=== PATIENT | female | born 1940 | race Caucasian/White ===

== ENCOUNTER 2016-09-12 05:17 | Inpatient (IN) | payer OTHER ==
[2016-09-04 13:17] LABS: HEMATOCRIT 39.1 % (37.0-47.0); HEMOGLOBIN 12.8 gm/dL (12.0-15.0); MCH 28.8 pg (26.0-34.0); MCHC 32.8 g/dL (28.0-37.0); MCV 87.7 fL (80.0-100.0); RBC 4.45 mil/uL (4.20-5.00); RDW 14.5 % (10.5-14.5); URINE BILIRUBIN NEGATIVE (Negative); URINE BLOOD 1+ (Negative); URINE COLOR YELLOW; URINE GLUCOSE-RANDOM* NEGATIVE (Negative); URINE KETONES NEGATIVE (Negative); URINE LEUKOCYTES-REFLEX NEGATIVE (Negative); URINE PROTEIN (DIPSTICK) NEGATIVE (Negative); WBC 6.1 thou/uL (4.0-11.0)
[2016-09-04 13:33] LABS: ALBUMIN 4.5 g/dL (3.4-5.0); CALCIUM 9.9 mg/dL (8.5-10.1); POTASSIUM 3.6 mmol/L (3.5-5.1)
[2016-09-04 13:35] LABS: INR 1.1; PROTIME 11.1 Seconds (9.3-11.4)
[2016-09-04 13:41] LABS: CASTS None Seen /LPF (None Seen); CRYSTALS None Seen /LPF (None Seen); SQUAMOUS 0-3 Few /LPF (0-3); URINE RBC 0-2 Rare /HPF (0-2); URINE WBC-REFLEX None Seen /HPF (0-5)
[2016-09-05 05:12] LABS: GLYCOHEMOGLOBIN (HGB A1C) 5.5 % (4.8-5.6)
[2016-09-12] VITALS (9 sets, daily range): BP systolic 94–137; BP diastolic 57–74
[~2016-09-12] VITALS: Ht 165.1 cm; Wt 76.3 kg
--- NOTE | ~2016-09-12 | HC ---
[facility] [place] [address] CONSULTATION Name: WHITNEY SALMERON Room #: 543-P [facility] IN M.R.#: [id number] Admission: 09/12/16 Attend Phys: Salazar Cruz MD Discharge: Date of : 42 Report #: [id number] THIS REPORT FOR: //name// CC: Salazar Cuevas DATE OF SERVICE: 09/12/2016 REASON FOR CONSULTATION: Medical management. HISTORY OF PRESENT ILLNESS: The patient is a pleasant 76-year-old female seen postop day zero from left knee replacement. In the postop setting, she is somewhat drowsy, but easily arousable and answers questions appropriately. She denies significant pain, dyspnea, chest pain, fevers, chills, or other problems. She has no significant complaints at this time. PAST MEDICAL HISTORY: Includes, 1. Hypertension. 2. Diabetes. 3. Hyperlipidemia. 4. Arthritis. 5. Thyroid disease. PAST SURGICAL HISTORY: Includes bunion surgery bilaterally, cataract surgery bilaterally, hernia surgery, thyroid surgery. FAMILY HISTORY: Includes heart disease. SOCIAL HISTORY: Lives alone. No significant other social history reported. MEDICATIONS: Refer to reconciliation note. ALLERGIES: No known drug allergies. REVIEW OF SYSTEMS: Twelve point review of systems performed and negative except as mentioned in history of present illness. PHYSICAL EXAMINATION: VITAL SIGNS: Afebrile, pulse 69, respiratory 16, O2 sat 100 on room air, blood pressure 137/74. GENERAL: Awake, alert, in acute distress. HEENT: Unremarkable. NECK: No JVD or thyromegaly. CARDIOVASCULAR: S1, S2 present, regular. RESPIRATORY: Air entry present bilaterally. ABDOMEN: Soft, nontender. [facility] [address] [place] [address] CONSULTATION Name: WHITNEY SALMERON Room #: 543-P ADM IN M.R.#: [id number] Admission: 09/12/16 Attend Phys: Salazar Cruz MD Discharge: Date of : 42 Report #: [id number] EXTREMITIES: Left knee dressed with drain in place with sanguinous drainage. NEUROLOGIC: Awake, alert and appropriate without obvious focal signs. SKIN: Unremarkable. No rash or lesions. LABS AND INVESTIGATIONS: CBC, chemistry, coag panel, urinalysis unremarkable. ASSESSMENT AND PLAN: This is a 76-year-old female seen postop day #0, post left knee replacement. 1. Left knee replacement. Defer further treatment per orthopedic surgery. 2. Hypertension, fair control. Resume home meds. 3. Diabetes. Resume home meds. 4. Hyperlipidemia. Resume home meds. 5. Monitor for any postop complications. At the present time, the patient appears stable. We appreciate the opportunity to be involved in her care and we will continue following while inpatient. <ELECTRONICALLY SIGNED> By: Butch Greco MD 09/13/16 1006 1554 13 Butch Greco MD /ramsey
--- NOTE | ~2016-09-12 | EKG ---
[address] [address] ELECTROCARDIOGRAM REPORT Name: WHITNEY SALMERON Room #: PRE IN [facility]#: [id number] Admission: Attend Phys: Salazar Cruz MD Discharge: Date of : 42 Report #: [id number] THIS REPORT FOR: //name// [facility] Test Date: 2016-09-04 Test Time: 13:41:21 Pat Name: WHITNEY SALMERON Department: Room: Gender: F Spinning Frame Cleaner: STELLA MENJIVAR : 1940 Requested By: Salazar Cruz Order Number: [id number] MD: Angel Park Measurements Intervals [place] Rate: 67 P: 45 NE: 192 QRS: -5 QRSD: 108 T: -3 QT: 414 QTc: 437 Interpretive Statements Sinus rhythm Probable left ventricular hypertrophy Borderline T abnormalities, diffuse leads Compared to ECG 06/24/1990 23:01:00 T-wave abnormality now present Electronically Signed On 09-04-2016 18:05:07 CDT by Angel Park [email or web address] <ELECTRONICALLY SIGNED> By: Angel Park MD 09/04/16 1805 134 134 Angel Park MD /ABEL
--- NOTE | ~2016-09-12 | O ---
[facility] [place] [address] OPERATIVE REPORT Name: WHITNEY SALMERON Room #: 543-P ADM IN M.R.#: [id number] Admission: 09/12/16 Attend Phys: Salazar Cruz MD Discharge: Date of : 42 Report #: [id number] THIS REPORT FOR: //name// CC: Saalzar Cuevas MD DATE OF SERVICE: 09/12/2016 PREOPERATIVE DIAGNOSIS: Left knee degenerative joint disease, severe. POSTOPERATIVE DIAGNOSIS: Left knee degenerative joint disease, severe. PROCEDURE: Left total knee arthroplasty. SURGEON: Salazar Cruz MD. DIRECTOR OF RECRUITMENT AND ADMISSIONS: ARTIE Garcia. ANESTHESIA: General. INDICATIONS: See hospital H and P. IMPLANTS UTILIZED: We used a DePuy PFC knee system. We used a cruciate retaining femoral component press fit size 4 narrow, size 3 tibial tray with an 8 mm insert, and a 41 mm oval dome patella. DESCRIPTION OF PROCEDURE: After adequate general anesthesia had been obtained, the patient's left lower extremity was prepped and draped in the usual meticulous sterile fashion. Limb was exsanguinated with gravity. Tourniquet was inflated to 350 torr. An anterior midline incision was made. SubQ divided sharply. Hemostasis was obtained with electrocautery. Medial parapatellar incision was made, infrapatellar fat pad was excised. Medial release was performed. The drill was used to drill the distal femur. This hole was enlarged, irrigated, suctioned, and the intramedullary guide placed the full length of the femur. The distal femoral cutting guide pinned to the appropriate height, distal femoral cut was made. The measuring device determined the size 4 as the appropriate size for this patient. The distal femur was marked, cutting guide impacted in to place, and the anterior, posterior, and chamfer cuts were made. Rongeur was used to remove additional osteophytes. At this time, the ACL was transected, and the tibia translated anteriorly, menisci were excised. A drill was used to drill the central portion of the tibia. This hole was enlarged, irrigated, suctioned, and the intramedullary guide placed the full length of the tibia. Proximal tibial cutting guide placed at appropriate height. Proximal tibial cut was made, 3 tray gave us the best [facility] [address] [place] [address] OPERATIVE REPORT Name: WHITNEY SALMERON Room #: 543-P [facility] IN ..#: [id number] Admission: 09/12/16 Attend Phys: Salazar Cruz MD Discharge: Date of : 42 Report #: [id number] coverage on the tibia. We spent a great deal of time in removing osteophytes from the posterior femur, as well as removing a large loose body from the popliteal space. This was carefully done with blunt dissection. We put the trial components in position. With the 8 spacer, she had the best flexion and extension gap. Patella was then measured, cutting guide clamped into place, patellar cut was made. A 41 template gave us the best coverage. We drilled the peg holes and put the trial component in position, and the patella tracked normally. At this time, the tibial tray rotation marked, distal femur was drilled. Trial components were removed. The knee was irrigated with both pulse lavage and antibiotic irrigation. We then placed the bone plug to the proximal tibia and distal femur. The cement was vacuum mixed, and when it reached the appropriate consistency, the knee was thoroughly dried. The tibial tray was cemented in to place. Excess cement was removed. The polyethylene was impacted in to place. The femur impacted in to place. The knee was taken out to 30 degrees of flexion. Uniform compression placed across the components. Patellar button was then cemented into place and again excess cement was removed. The knee was then irrigated, and irrigation was allowed to rest in the wound, until the cement fully cured. When it had done so, the knee was dried thoroughly, and inspected. Drains were placed superolaterally, both deep and superficial. The retinacular layer closed with combination of interrupted [id number] #1 Vicryl, as well as running #1 Tevdek. SubQ was closed with 2-0 Monocryl. Skin closed with solo. Sterile compressive dressing was applied. Tourniquet was then deflated. By: [id number] Salazar Cruz MD /nt
[~2016-09-12 05:17] MED LIST: ASPIR 8181 MG PO; COZAAR 25 MG TA25 M1 PO; HYDROCHLOROTHIA25 M1 PO; LEVOTHYROXIN0.088 MG PO; METFORMIN HCL500 MG PO; POTASSIUM20 PO; SIMVASTATIN40 MG PO; TOPROL XL25 MG PO; VITAMIN D250000 UNIT PO
[2016-09-13 04:00] VITALS: BP 102/64
[2016-09-13 05:21] LABS: HEMATOCRIT 30.1 % (37.0-47.0); HEMOGLOBIN 10.3 gm/dL (12.0-15.0); MCH 29.5 pg (26.0-34.0); MCHC 34.2 g/dL (28.0-37.0); MCV 86.1 fL (80.0-100.0); RBC 3.49 mil/uL (4.20-5.00); RDW 14.3 % (10.5-14.5); WBC 8.7 thou/uL (4.0-11.0)
[2016-09-13 05:34] LABS: CALCIUM 8.7 mg/dL (8.5-10.1); CREATININE 1.3 mg/dL (0.6-1.0)
[2016-09-13 07:29] VITALS: BP 108/63
[2016-09-13 10:05] VITALS: BP 108/63
[2016-09-13 16:50] VITALS: BP 140/83
[2016-09-13 20:00] VITALS: BP 96/55
[2016-09-13 20:16] VITALS: BP 103/53
[2016-09-14 03:51] VITALS: BP 119/68
[2016-09-14 06:08] LABS: HEMATOCRIT 29.8 % (37.0-47.0); HEMOGLOBIN 10.3 gm/dL (12.0-15.0); MCH 29.6 pg (26.0-34.0); MCHC 34.6 g/dL (28.0-37.0); MCV 85.4 fL (80.0-100.0); RBC 3.49 mil/uL (4.20-5.00); WBC 10.4 thou/uL (4.0-11.0)
[2016-09-14 06:20] LABS: CALCIUM 8.8 mg/dL (8.5-10.1); CREATININE 1.1 mg/dL (0.6-1.0)
[2016-09-14 07:15] VITALS: BP 116/56
[2016-09-14 15:43] VITALS: BP 134/69
[2016-09-14 19:33] VITALS: BP 137/66
[2016-09-15 03:35] VITALS: BP 133/71
[2016-09-15 03:40] LABS: MCH 29.6 pg (26.0-34.0); MCHC 34.4 g/dL (28.0-37.0); MCV 86.1 fL (80.0-100.0); RBC 3.37 mil/uL (4.20-5.00); WBC 10.7 thou/uL (4.0-11.0)
[2016-09-15 03:50] LABS: CALCIUM 8.9 mg/dL (8.5-10.1); POTASSIUM 4.5 mmol/L (3.5-5.1)
[2016-09-15] MEDS ORDERED: HYDROCODONE-APA1 TA1 PO (06:48)
[2016-09-15] MEDS ORDERED: XARELTO10 MG PO (06:48)
[2016-09-15 08:52] VITALS: BP 129/71
[2016-09-15 12:11] VITALS: BP 108/63
[2016-09-15 17:03] VITALS: BP 132/74
[2016-09-15 20:00] VITALS: BP 131/50
[2016-09-16 04:00] VITALS: BP 138/74
[2016-09-16 08:12] VITALS: BP 128/72
[2016-09-16 08:30] VITALS: BP 128/72
== END 2016-09-16 12:19 | disposition home or self-care (01) | DRG 470 ==
LOC: TBA 05:17 → 5S 05:17 → PRE 07:07 → 5S 10:28 → PRE 11:12 → 5S 09-16 12:19
PROVIDERS: Hospitalist; Orthopaedic Surgery
PROC: 0SRD0J9 Replacement of Left Knee Joint with Synthetic Substitute, Cemented, Open Approach (ICD-10-PCS; principal; 2016-09-12)
DX: M17.12 Unilateral primary osteoarthritis, left knee (principal); N17.9 Acute kidney failure, unspecified; I10 Essential (primary) hypertension; E11.9 Type 2 diabetes mellitus without complications; E78.5 Hyperlipidemia, unspecified; Z60.2 Problems related to living alone; D64.9 Anemia, unspecified; Z79.899 Other long term (current) drug therapy; Z98.42 Cataract extraction status, left eye; Z98.41 Cataract extraction status, right eye; Z82.49 Family history of ischemic heart disease and other diseases of the circulatory system
CPT/HCPCS: 10785; 50010; 50101; 50415; 50612; 50886; 50954; 51130; 51225; 51320; 51412; 51771; 52001; 52282; 53000; 53078; 53364; 56525; 56527; 62110; 62900; 70005

== ENCOUNTER → 2021-02-24 | Outpatient (CLI) | payer OTHER ==
[~2021-02-24] MED LIST changes: +ASPIRIN EC81 M1 PO; +CALCIUM500 MG PO; +CARBIDOPA-LEVO1 EAC9 PO; +HYDROCODONE-APA1 TA1 PO; +KLOR-CON M2020 MEQ PO; +NORCO7.5 PO; +TOPROL XL50 MG PO; +VITAMIN D PO; +VITAMIN D31250 MC1 PO; +XARELTO10 MG PO
[2021-02-24 11:53] LABS: HEMATOCRIT 38.2 % (37.0-47.0); HEMOGLOBIN 12.3 gm/dL (12.0-15.0); MCH 28.8 pg (26.0-34.0); MCHC 32.3 g/dL (28.0-37.0); MCV 89.2 fL (80.0-100.0); RBC 4.28 mil/uL (4.20-5.00); RDW 14.7 % (10.5-14.5); WBC 8.7 thou/uL (4.0-11.0)
[2021-02-24 11:57] LABS: URINE BILIRUBIN NEGATIVE (Negative); URINE BLOOD 1+ (Negative); URINE CLARITY CLEAR; URINE COLOR YELLOW; URINE GLUCOSE-RANDOM* NEGATIVE (Negative); URINE KETONES NEGATIVE (Negative); URINE LEUKOCYTES-REFLEX TRACE (Negative); URINE NITRITE-REFLEX NEGATIVE (Negative); URINE PROTEIN (DIPSTICK) NEGATIVE (Negative); URINE UROBILINOGEN 0.2 E.U./dl (0.2-1.0)
[2021-02-24 11:58] LABS: INR 1.04; PROTIME 11.3 Seconds (10.5-12.1)
[2021-02-24 12:01] LABS: ALBUMIN 4.3 g/dL (3.4-5.0); CALCIUM 9.6 mg/dL (8.5-10.1); CREATININE 1.1 mg/dL (0.6-1.0); POTASSIUM 3.8 mmol/L (3.5-5.1)
[2021-02-24 12:09] LABS: BACTERIA-REFLEX 1-9 Few /HPF (None Seen); CASTS None Seen /LPF (None Seen); CRYSTALS None Seen /LPF (None Seen); SQUAMOUS 4-10 Moderate /LPF (0-3); URINE RBC 1-2 Rare /HPF (NONE SEEN); URINE WBC-REFLEX 0-5 Rare /HPF (0-5)
== END ==
LOC: PAC 10:18
PROVIDERS: ATTEND Orthopaedic Surgery
DX: Z01.812 Encounter for preprocedural laboratory examination (principal); M17.12 Unilateral primary osteoarthritis, left knee; I10 Essential (primary) hypertension

== ENCOUNTER 2021-03-03 07:15 | Inpatient (IN) | payer OTHER ==
[~2021-03-03] VITALS: Ht 165.1 cm; Wt 76.2 kg
[2021-03-03 08:49] VITALS: BP 143/73
--- NOTE | 2021-03-03 12:03 | O ---
[facility] [place] [address] OPERATIVE REPORT Name: WHITNEY SALMERON Room #: 150-6 [facility]..#: [id number] Admission: 03/03/21 Attend Phys: Kalen Allen MD Discharge: Date of : 42 Report #: [id number] THIS REPORT FOR: cc: Ronna Cuevas MD,Ronna Allen,Kalen Seth MD ~ DATE OF SERVICE: 03/03/2021 PREOPERATIVE DIAGNOSIS: Degenerative arthritis, right knee. POSTOPERATIVE DIAGNOSIS: Degenerative arthritis, right knee. PROCEDURE: Right total knee arthroplasty. SURGEON: Kalen Allen MD INDICATIONS: This frail, but still healthy and generally active 80-year-old female has progressive degenerative arthritis in multiple areas. She underwent previous left total knee replacement with good result. She is now having progressive right knee pain with mild varus position. She has elected to go ahead with right total knee arthroplasty. DESCRIPTION OF PROCEDURE: The patient was taken to the operating room where she was placed under general anesthesia. A femoral nerve block was also applied. The right knee and leg were meticulously prepped and draped. A thigh tourniquet was applied and inflated to 300 mmHg. An anterior longitudinal skin incision was made and carried through the medial retinaculum. The patella was reflected laterally. Moderately severe degenerative change in all three compartments was noted. The Alicea and Nephew knee system was utilized. Intramedullary guides were used on both the femur and the tibia. The femur was cut in 5 degrees of valgus and the tibia cut perpendicular to the long axis of the bone. Sufficient bone was resected to correct the mild flexion contracture and mild varus position. The femur was best suited for a size 4 femoral component. The tibia was best suited for a size 3 tibial component. A trial reduction demonstrated that a 9 mm polyethylene insert worked nicely. The patellar surface was resected and a 35 mm patellar button fit most appropriately. Appropriate anchor holes were created. The intramedullary canal was blocked with a bone block on both the femoral and tibial sides. The surfaces were thoroughly irrigated and dried. Methyl methacrylate cement was mixed and injected into the porous surface of the proximal tibia. The permanent components were brought up on the field. The Alicea and Nephew size 3 right, tibial baseplate was selected. This was impacted into position and seated nicely and appeared to be secure. The 9 mm Legion cruciate retaining polyethylene insert was snapped into place. It seated nicely and appeared to be secure. The right size 4 cruciate retaining Legion porous femoral component was impacted on the distal femur with a small amount of cement at the anchor holes. This also seated nicely and appeared to [address] [address] OPERATIVE REPORT Name: WHITNEY SALMERON Room #: 150-6 [facility] M.R.#: [id number] Admission: 03/03/21 Attend Phys: Kalen Allen MD Discharge: Date of : 42 Report #: [id number] be secure. A 35 mm Michelle II patellar resurfacing component was selected and impacted into the patella with appropriate anchor holes and cement. This was secured with a patellar clamp until the cement had hardened. Alignment, range of motion and stability were assessed and felt to be satisfactory. The patella tracks nicely and appears to be stable. The knee demonstrated full knee extension and flexion beyond 130. At this point, the knee was copiously irrigated. A single Hemovac was left in the wound exiting through a separate stab incision. The tourniquet was deflated after a total tourniquet time of 43 minutes. The fascia was closed with multiple #1 Vicryl sutures. The subcutaneous tissues were closed with 0 Monocryl. The skin was closed with skin solo. A sterile dressing was applied. The patient was awakened and returned to recovery room in good condition. <ELECTRONICALLY SIGNED> By: Kalen Allen MD 03/03/21 1203 [id number] [id number] Kalen Allen MD /nt
[2021-03-03 17:26] VITALS: BP 154/69
[2021-03-03 21:04] VITALS: BP 118/66
--- NOTE | 2021-03-03 22:41 | NUR ---
PT ALERT AND ORIENTED WITH SOME SLIGHT FORGETFULNESS. PT RIGHT KNEE WITH RICHARD DRSG WELL POLAR LAYO, TEDS AND SCDS.GOOD CSM TO R FOOT. ABDUCTOR PILLOW WHILE IN BED. ON /, ENC TO USE I/S W/A. PT REQUESTING TO USE BEDPAN-VOIDING ADEQUATELY. URINARY FREQUENCY REPORTED PER NORM. DENIES ANY BURNING. DENIES ANY NAUSEA OR VOMITING.IVF INFUSING-NO FURTHER CONCERNS AT THIS TIME.CALL LIGHT WITHIN REACH.
[2021-03-04 06:13] LABS: HEMATOCRIT 28.6 % (37.0-47.0); HEMOGLOBIN 9.5 gm/dL (12.0-15.0); MCH 29.4 pg (26.0-34.0); MCV 88.9 fL (80.0-100.0); RBC 3.22 mil/uL (4.20-5.00); RDW 13.8 % (10.5-14.5)
[2021-03-04 06:51] LABS: CALCIUM 8.9 mg/dL (8.5-10.1); CREATININE 1.2 mg/dL (0.6-1.0); POTASSIUM 3.9 mmol/L (3.5-5.1)
--- NOTE | 2021-03-04 08:00 | NUR ---
chart review. 80 year old female, Right total knee replacement. A & o x 3, with some forgetfulness, pleasant and able to make her needs know. She lives alone in condo, manage own medication. Has broken fww and will need another one. If dc over weekend send her home with one from closet related to provider plus has rx already. 3 steps into condo and few steps inside. Danyell is my daughter we want to use vna hh and i want to take home very thing i can, bedpan, bedside commode, shower chair, and walker. Cm re-education that insurance not cover bsc or shower chair.
[2021-03-04 08:15] VITALS: BP 110/50
--- NOTE | 2021-03-04 11:46 | NUR ---
Assumed care of pt at 0700. Pt a&ox4, forgetful at times. Pain controlled. Dressing c/d/i. TAY hose and SCDs in place. Will d/c hemovac drain today. Pt worked with physical therapy this am. Will likely need rehab. Call light within reach. Fall precuations in place. Will continue to monitor.
[2021-03-04 16:35] VITALS: BP 134/48
[2021-03-04 21:15] VITALS: BP 135/62
[2021-03-05 06:06] LABS: HEMATOCRIT 27.7 % (37.0-47.0); MCH 28.7 pg (26.0-34.0); MCHC 32.5 g/dL (28.0-37.0); MCV 88.4 fL (80.0-100.0); RBC 3.14 mil/uL (4.20-5.00); WBC 11.7 thou/uL (4.0-11.0)
[2021-03-05 08:43] VITALS: BP 125/51
--- NOTE | 2021-03-05 10:21 | NUR ---
Assumed care of pt at 0700. Pt a&ox4. Dressing c/d/i. Pain controlled with prn pain medications. Up to the chair this am. Will work with physical therapy this morning. Will possibly need SNF. radiation control worker was called and stated she will talk to patient and family this am. Family at bedside. Call light within reach. Fall precautions in place. Will continue to monitor.
--- NOTE | 2021-03-05 11:08 | NUR ---
WAS NOTIFIED BY PALAK DOUGLAS THAT PT'S FAMILY PT IS NEEDING A SKILLED STAY AT [facility]. SPOKE WITH PT'S SON AND THE FAMILY IS [facility]ED [facility] AND I, SUGGESTED THAT THEY LOOK INTO [facility] AND THAT THE ROBOTIC MACHINE OPERATOR FOR THE UNIT WILL SPEAK WITH THEM ON SUNDAY AND LET THEM KNOW ALL THEIR OPTIONS FOR FACILITIES.
[2021-03-05 11:42] VITALS: BP 125/51
[2021-03-05 16:57] VITALS: BP 140/58
[2021-03-05 20:36] VITALS: BP 137/84
--- NOTE | 2021-03-06 05:38 | NUR ---
PT LYING IN RECLINER. VOIDING PER BSC. LORTAB PROVIDING PAIN RELIEF. RESTING COMFORTABLY. NO NEEDS VOICED. CALL LIGHT WITHIN REACH. FREQUENT OBSERVATION.
[2021-03-06 06:18] LABS: HEMATOCRIT 26.6 % (37.0-47.0); HEMOGLOBIN 8.7 gm/dL (12.0-15.0); MCH 29.2 pg (26.0-34.0); MCHC 32.9 g/dL (28.0-37.0); MCV 88.6 fL (80.0-100.0); RDW 14.1 % (10.5-14.5); WBC 9.6 thou/uL (4.0-11.0)
[2021-03-06 08:05] VITALS: BP 125/50
--- NOTE | 2021-03-06 11:42 | NUR ---
ASSUMED CARE OF PT AT 0700 THIS MORNING. PT HAS RT TTL KNEE REPLACEMENT. PT IS A/OX4 WITH SOME FORGETFULNESS. PT IS WAITING FOR AUTHORIZATION TO GO TO REHAB IN SNF. ASSESSMENTS NOTED IN CHART AND OTHERWISE UNREMARKABLE. FALL PRECAUTIONS ARE IN PLACE. CALL LIGHT AND OTHER NEEDS ARE IN REACH. MEDS AND TX GIVEN NEEDED AND SCHEDULED. WILL MONITOR AND NOTE ANY CHANGES.
[2021-03-06 15:05] VITALS: BP 123/56
[2021-03-06 20:17] VITALS: BP 110/47
--- NOTE | 2021-03-07 05:34 | NUR ---
PT SLEEPING IN RECLINER. TRANSFERRING TO BEDSIDE COMMED WITH ASSIST X2. LORTAB PROVIDING PAIN RELIEF. RESTING COMFORTABLY. NO NEEDS VOICED. CALL LIGHT WITHIN REACH. FREQUENT OBSERVATION.
[2021-03-07 07:41] VITALS: BP 139/59
--- NOTE | 2021-03-07 09:30 | NUR ---
RE-ASSUMED CARE OF PT AT 0700 THIS MORNING. PT IS A/OX4 AND HAS NO COMPLAINTS AT THIS TIME. PT IS TO BE WORKING WITH PHYS THPY AND OT THIS MORNING. FIELD CANE SCALER IS WORKING TO SEE IF PT CAN GO TO ACUTE IN PT REHAB IN [address] [place] [address]. ASSESSMENTS NOTED IN CHART. FALL PRECAUTIONS ARE IN PLACE. PT CAN AMBULATE TO RESTROOM WITH 1X ASST WITH GB AND WALKER. CALL LIGHT AND OTHER NEEDS ARE IN REACH. PT LIKES TO SLEEP IN RECLINER VS BED. MEDS AND TX GIVEN NEEDED AND SCHEDULED. DR. ASTROGA WAS ADVISED THAT HER HOME MEDS HAVE NOT BEEN SET IN THE [facility]. ORDERS FOR MEDS HAVE BEEN ACKNOWLEDGED. WILL MONITOR AND NOTE ANY CHANGES.
--- NOTE | 2021-03-07 12:00 | NUR ---
New order 5n consult vs skilled rehab. Cm visited with patient, daughter nicolasa and son at bedside. Left [facility] skilled list if 5n is not approved by [facility].
[2021-03-07 14:57] VITALS: BP 126/53
[2021-03-07 19:55] VITALS: BP 127/70
--- NOTE | 2021-03-08 03:31 | NUR ---
PT IS A/O X4 AND IS UP WITH ASSIST X1 TO BSC. VSS AFEBRILE. C/O PAIN TO KNEE. PRN PAIN MEDICATION GIVEN DIRECTED. CALLS OUT APPROPRIATELY FOR ASSISTANCE. FALL PRECUATIONS IN PLACE,CALL LIGHT IS WITHIN REACH. PT IS PROGRESSING TOWARDS PLAN OF CARE DC GOALS.
[2021-03-08 07:28] VITALS: BP 135/45
--- NOTE | 2021-03-08 14:45 | NUR ---
RE-ASSUMED CARE OF PT AT 0700 THIS MORNING. PT IS A/OX4 AND WAITING FOR PLACEMENT FOR REHAB. ASSESSMENTS NOTED IN CHART AND OTHERWISE UNREMARKABLE. FALL PRECAUTIONS ARE IN PLACE. CALL LIGHT AND OTHER NEEDS ARE IN REACH. PT SLEEPS IN RECLINER MOST OF THE NIGHT. MEDS AND TX GIVEN NEEDED AND SCHEDULED. WILL CONTINUE TO MONITOR NOTE ANY CHANGES.
[2021-03-08 14:48] VITALS: BP 111/51
--- NOTE | 2021-03-08 15:03 | NUR ---
micki denied auth for 5N acute rehab. Family and bo still looking at the [facility] skilled list to send referral. Will need auth for skilled rehab as well.
--- NOTE | 2021-03-08 15:49 | NUR ---
AUTHORIZATION REQUESTED FOR ACUTE REHAB ADMISSION ON 03/07/21. CALL RECIEVED THIS DATE FROM PATIENT'S INSURANCE THAT PATIENT HAD BEEN DENIED AUTHORIZATION AND THAT PATIENT'S CARE COULD BE PERFORMED AT A LOWER LEVEL. PEER TO PEER WAS OFFERED IF COMPLETED BY MAR 10 AT 1100 - PHONE [phone]. DISCUSSED WITH REHAB FIELDWORK COORDINATOR WHO DECLINED PEER TO PEER. D/C ASSOCIATE TRAINER INFORMED OF THE ABOVE. THANK YOU FOR THIS REFERRAL.
[2021-03-08 19:35] VITALS: BP 127/62
--- NOTE | 2021-03-09 04:26 | NUR ---
ASSUMED PT CARE THIS. PT C/O PAIN WHICH WAS MANGED BY PRN PAIN MEDS. PT HAS RICHARD DRSG TO RIGHT WHICH IS C/D/I. PT HAS THIGH HIGH TAY HOSE IN PLACE. PT DOES NOT HAVE IV IN PLACE AND DR. ASTORGA IS AWARE. MEDS WERE GIVEN PER [facility] ORDERS.FALL PRECAUTIONS IN PLACE. WILL CONTINUE TO MONITOR.
[2021-03-09 08:03] VITALS: BP 128/63
--- NOTE | 2021-03-09 09:15 | NUR ---
josé visited with bo at bedside related to 5n denial and needing to see what facility she would like skilled referrals to be sent out. [facility] but [facility] is who we [facility] per bo. Spoke with her daughter nicolasa and she understands the acute rehab denial. Will need auth from [facility] for bo to go skilled rehab at [facility].
--- NOTE | 2021-03-09 10:23 | NUR ---
Assumed care of pt at 0700. Pt a&ox4. Pain controlled. Dressing c/d/i. TAY hose and SCDs in place. Polar care in place. Awaiting placement. Call light within reach. Fall precautions in place. Will continue to monitor.
--- NOTE | 2021-03-09 11:03 | NUR ---
Unit cm advised pt that 5n acute rehab request was denied by her ins plan and that they will authorize a SNF stay. She is interested in [facility]. Referral faxed and called to admissions. Awaiting their response. Pt is dc ready once accepted and auth is in place.
[2021-03-09] MEDS ORDERED: MIRALAX119 GM PO (14:14)
[2021-03-09] MEDS ORDERED: XARELTO10 MG PO (14:14)
[2021-03-09] MEDS ORDERED: COLACE100 MG PO (14:14)
[2021-03-09] MEDS ORDERED: NOVOLOG100 UNIT/M SUBQ (14:14)
[2021-03-09] MEDS ORDERED: IRON325 PO (14:15)
--- NOTE | 2021-03-10 07:48 | D ---
[facility] [place] [address] DISCHARGE SUMMARY Name: WHITNEY SALMERON Room #: 447-P [facility] IN M.R.#: [id number] Admission: 03/05/21 Attend Phys: Kalen Allen MD Discharge: 03/09/21 Date of : 42 Report #: [id number] THIS REPORT FOR: cc: Ronna Cuevas MD,Ronna Allen,Kalen Seth MD ~ DATE OF SERVICE: 03/09/2021 FINAL DIAGNOSES: 1. End-stage degenerative arthritis, right knee. 2. Diabetes. 3. Hypertension. 4. Anemia. OPERATIONS AND PROCEDURES: Right total knee arthroplasty. HISTORY: This frail, but alert 80-year-old female who lives generally independently with some family assistance. She has had significant increasing problems with right knee pain and deformity. The patient and family have decided to go ahead with total knee arthroplasty. HOSPITAL COURSE: The patient was admitted and taken to the operating room on 03/03/2021, she underwent right total knee arthroplasty, which was tolerated well. Postoperatively, she was quite weak and frail and had a lot of difficulty with physical therapy. She was unable to achieve independent ambulation, but did make some progress using a walker with assisted ambulation. Her hypertension and diabetes seemed to be well controlled. She continued on her routine medications. Her pain was adequately controlled on hydrocodone and she was started on Xarelto 10 mg daily for anticoagulation prophylaxis. She has made slow progress, but it is apparent that she is really not able to return to her own home in an independent fashion. She does not have sufficient family assistance to manage there. Consequently, we have decided to proceed with extended care facility, several inquiries were made without much success. Subsequently, we have found an appropriate extended care facility for ongoing subacute rehabilitation. The plans are for discharge to that facility today on 03/09/2021. Her discharge medications include simvastatin 40 mg daily, Synthroid 88 mcg daily, metoprolol 50 mg daily, hydrocodone 5 mg q. 4 to 6 hours p.r.n. for pain, Xarelto 10 mg daily, potassium chloride 20 mEq daily, carbidopa 25/100 one tablet b.i.d., metformin 500 mg 2 tablets q.a.m., losartan 25 mg 4 tablets at bedtime. She will continue a regular diet and advance activities with assistance as needed. I have encouraged family to call me if there are any [address] [address] DISCHARGE SUMMARY Name: WHITNEY SALMERON Room #: 447-P [facility] IN ..#: [id number] Admission: 03/05/21 Attend Phys: Kalen Allen MD Discharge: 03/09/21 Date of : 42 Report #: [id number] problems. We will otherwise plan to see her back in my office at 2 weeks postoperatively for followup and suture removal. <ELECTRONICALLY SIGNED> By: Kalen Allen MD 03/10/21 0748 1510 1836 Kalen Allen MD /ramsey
--- NOTE | 2021-03-11 15:31 | NUR ---
voice message from daughter sumeet, josé called her back and she stated ok thanks that was from 7 days ago and we already talked per sumeet. Tammy morelos to skilled rehab this week, to [facility].
== END 2021-03-09 16:45 | DRG 470 ==
LOC: OR → TBA 07:15 → 4S 07:15 → TBA 07:16 → PRE 11:24 → EDSTATUS 11:37 → OR 12:28 → 4S 16:42 → OR 16:43 → 4S 16:43
PROVIDERS: ADMIT Orthopaedic Surgery; ATTEND Orthopaedic Surgery
PROC: 0SRC0J9 Replacement of Right Knee Joint with Synthetic Substitute, Cemented, Open Approach (ICD-10-PCS; principal; 2021-03-03)
PROC: 3E0T3BZ Introduction of Anesthetic Agent into Peripheral Nerves and Plexi, Percutaneous Approach (ICD-10-PCS; principal; 2021-03-03)
DX: M17.11 Unilateral primary osteoarthritis, right knee (principal); D62 Acute posthemorrhagic anemia; N17.9 Acute kidney failure, unspecified; E78.5 Hyperlipidemia, unspecified; E89.0 Postprocedural hypothyroidism; Z96.652 Presence of left artificial knee joint; N18.9 Chronic kidney disease, unspecified; I12.9 Hypertensive chronic kidney disease with stage 1 through stage 4 chronic kidney disease, or unspecified chronic kidney disease; Z20.822 Contact with and (suspected) exposure to COVID-19; E11.22 Type 2 diabetes mellitus with diabetic chronic kidney disease; Z79.82 Long term (current) use of aspirin; Z79.899 Other long term (current) drug therapy; Z98.42 Cataract extraction status, left eye; Z98.41 Cataract extraction status, right eye
CPT/HCPCS: 10195; 50010; 50101; 50415; 50954; 51130; 51225; 51412; 56525; 57095; 57103; 57104; 57180; 58449; 59024; 62110; 62900; 64039; 70005